=== PATIENT | male | born 1980 | race Caucasian/White ===

== ENCOUNTER 2020-05-26 03:54 | Inpatient (IN) | payer OTHER ==
[2020-05-26] VITALS (350 sets, daily range): BP systolic 123–148; BP diastolic 74–89; PULSE 49–65; TEMP 97.7–98.6; O2SAT 86–100
[~2020-05-26] VITALS: Wt 90.4 kg
--- NOTE | 2020-05-26 04:51 | NUR ---
Patient arrived to the unit via EMS. Patient alert and oriented and in no distress upon arrival. Able to answer all quesions appropriately. Hospitalist notifed and at patient's bedside to discuss current plan of care.
[2020-05-26 05:41] LABS: BASO # 0.1 (0.0-0.2); BASO % 0.5 % (0.0-2.0); EOS # 0.1 (0.0-0.7); EOS % 0.8 % (0-4.0); GRAN # 8.9 (1.4-6.5); GRAN % 79.1 % (42.2-75.2); HEMATOCRIT 40.7 % (42.0-52.0); HEMOGLOBIN 14.5 g/dl (13.5-18.0); LYMPH # 1.5 (1.2-3.4); LYMPH % 13.2 % (20.0-51.0); MEAN CELL VOLUME 91 fl (80.0-100.0); MEAN CORPUSCULAR HEMOGLOBIN 33 pg (27.0-31.0); MEAN CORPUSCULAR HGB CONC 36 g/dl (33.0-37.0); MEAN PLATELET VOLUME 10.5 fl (7.4-10.4); MONO # 0.7 (0.1-0.6); MONO % 6.1 % (1.7-9.3); PLATELET COUNT 231 K/mm3 (130-400); RED BLOOD COUNT 4.46 M/mm3 (4.20-5.60); REDCELL DISTRIBUTION WIDTH-CV 11.8 % (11.5-14.5)
[2020-05-26 05:51] LABS: CALCIUM 9.2 mg/dL (8.4-10.2); CREATININE, serum 1.4 (0.66-1.25); POTASSIUM 3.5 mmol/L (3.4-5.0); SALICYLATE 34.1 mg/dL
[2020-05-26] MEDS ORDERED: IMITREX 25MG TA25 MG (06:44)
[2020-05-26] MEDS ORDERED: ASPIRIN 32325 MG/TAB PO (06:45)
[2020-05-26 08:19] LABS: CALCIUM 8.8 mg/dL (8.4-10.2); CREATININE, serum 1.47 (0.66-1.25); POTASSIUM 3.5 mmol/L (3.4-5.0); SALICYLATE 29.8 mg/dL
[2020-05-26 10:26] LABS: CALCIUM 8.9 mg/dL (8.4-10.2); CREATININE, serum 1.5 (0.66-1.25); POTASSIUM 3.6 mmol/L (3.4-5.0); SALICYLATE 28.4 mg/dL
--- NOTE | 2020-05-26 10:53 | NUR ---
Mushroom Packer met with the patient to complete intake. The patient lives on [address] with his . The patient is [employer], is independent and denies DME use. The patient receives medical care and medications from [facility]. The patient does not have advanced directives in the EMR but states they are complete and designate his . The patient plans to return home discharge and his will provide transporation.
[2020-05-26 12:21] LABS: CALCIUM 8.4 mg/dL (8.4-10.2); CREATININE, serum 1.36 (0.66-1.25); POTASSIUM 3.5 mmol/L (3.4-5.0); SALICYLATE 22.8 mg/dL
--- NOTE | 2020-05-26 14:10 | NUR ---
Patient trasnported upstairs via wheelchair to room 317. IVF still running. STANISLAV Foreman notified patient in room.
--- NOTE | 2020-05-26 14:34 | NUR ---
Pt arrives to medical unit rm 317 from ICU, awake and alert, oriented x 4, ambulates in room with steady gait, reports pain to right side tooth starting to increase. IVF's infusing per orders through left AC without s/s of complications. No further needs reported. Call light in reach.
[2020-05-26 15:42] LABS: CALCIUM 8.4 mg/dL (8.4-10.2); CREATININE, serum 1.44 (0.66-1.25); POTASSIUM 3.4 mmol/L (3.4-5.0)
--- NOTE | 2020-05-26 16:30 | NUR ---
Pt reports pain to right tooth 6 out of 10, requesting pain medication as available. PRN medication administered per orders. No further needs reported. Call light in reach.
--- NOTE | 2020-05-26 19:05 | NUR ---
Report with STANISLAV Willson. Pt resting in bed, reports pain to right tooth remains around 6 out of 10. PRN pain medication administered per orders. Pt denies further needs. Call light in reach.
--- NOTE | 2020-05-26 20:40 | NUR ---
PATIENT RECEIVED FAIR IN BED.DUE MEDS GIVEN,REPORTED OF PAIN MEDS GIVEN ORDERED,ASSESSMENT DONE,IVFS IN GOOD PROGRESS.NO OTHER NEEDS AT THIS TIME.
[2020-05-27 00:30] VITALS: BP 135/77; PULSE 56; TEMP 97.5
[2020-05-27 04:30] VITALS: BP 138/82; PULSE 70; TEMP 98.3
--- NOTE | 2020-05-27 05:18 | NUR ---
PATIENT REMAINS FAIR ON 6 HOURLY PAIN MEDS,IVFS ARE IN GOOD PROCESS,NO OTHER NEEDS ST THIS TIME.
[2020-05-27 07:18] LABS: BASO # 0.1 (0.0-0.2); BASO % 0.7 % (0.0-2.0); EOS # 0.2 (0.0-0.7); EOS % 2.2 % (0-4.0); GRAN # 5.1 (1.4-6.5); GRAN % 60.9 % (42.2-75.2); HEMATOCRIT 41.5 % (42.0-52.0); HEMOGLOBIN 14.4 g/dl (13.5-18.0); LYMPH % 24.4 % (20.0-51.0); MEAN CELL VOLUME 93 fl (80.0-100.0); MEAN CORPUSCULAR HEMOGLOBIN 32 pg (27.0-31.0); MEAN CORPUSCULAR HGB CONC 35 g/dl (33.0-37.0); MEAN PLATELET VOLUME 10.8 fl (7.4-10.4); MONO % 11.4 % (1.7-9.3); PLATELET COUNT 220 K/mm3 (130-400); RED BLOOD COUNT 4.48 M/mm3 (4.20-5.60); REDCELL DISTRIBUTION WIDTH-CV 11.9 % (11.5-14.5)
[2020-05-27 07:23] LABS: CREATININE, serum 1.24 (0.66-1.25); POTASSIUM 3.7 mmol/L (3.4-5.0)
[2020-05-27 07:37] LABS: COLLECTION METHOD CLEAN CATCH
[2020-05-27 08:04] LABS: PH 7 (5-8); SQUAMOUS EPITHELIAL None Seen /hpf; URINE APPEARANCE Clear; URINE BACTERIA None Seen /hpf; URINE BILIRUBIN Negative (NEGATIVE); URINE BLOOD Negative (NEGATIVE); URINE COLOR Straw; URINE GLUCOSE Negative (NEGATIVE); URINE KETONE Negative (NEGATIVE); URINE LEUKOCYTE ESTERASE Negative (NEGATIVE); URINE NITRATE Negative (NEGATIVE); URINE PROTEIN(semi-quant) Negative (NEGATIVE); URINE RBC None Seen /hpf; URINE UROBILINOGEN Negative (NEGATIVE)
[2020-05-27 08:22] VITALS: BP 141/88; PULSE 60; TEMP 98.3
--- NOTE | 2020-05-27 08:46 | NUR ---
Patient sitting up in bed eating breakfast. A&Ox4. VSS. IV CDI, fluids infusing. Reporting pain in jaw 09/04. Pain medication given as requested from the patient. No further needs expressed from the patient. Call light within reach
[2020-05-27 11:52] VITALS: BP 139/75; PULSE 73; TEMP 99.2
[2020-05-27 16:50] VITALS: BP 154/79; PULSE 65; TEMP 99.1
--- NOTE | 2020-05-27 17:33 | NUR ---
Patient had an uneventful day. A&Ox3. VSS. IV CDI. Pain medication given when requested. Patient ambulated in the hallways independently, no complaints. No further needs expressed from the patient. Call light within reach
[2020-05-27 19:38] VITALS: BP 146/71; PULSE 76; TEMP 98.8
[2020-05-28 00:13] VITALS: BP 142/79; PULSE 64; TEMP 98.4
[2020-05-28 04:06] VITALS: BP 152/71; PULSE 85; TEMP 97.9
--- NOTE | 2020-05-28 07:00 | NUR ---
Report with STANISLAV Concepcion. Pt resting in bed with eyes closed, resp even and unlabored. IVF's infusing per orders. Call light in reach.
[2020-05-28 07:09] LABS: BASO # 0.1 (0.0-0.2); BASO % 0.6 % (0.0-2.0); EOS # 0.2 (0.0-0.7); EOS % 2.6 % (0-4.0); GRAN # 4.5 (1.4-6.5); GRAN % 58.2 % (42.2-75.2); HEMATOCRIT 40.8 % (42.0-52.0); HEMOGLOBIN 14.2 g/dl (13.5-18.0); LYMPH % 25.8 % (20.0-51.0); MEAN CELL VOLUME 93 fl (80.0-100.0); MEAN CORPUSCULAR HEMOGLOBIN 32 pg (27.0-31.0); MEAN CORPUSCULAR HGB CONC 35 g/dl (33.0-37.0); MEAN PLATELET VOLUME 10.4 fl (7.4-10.4); MONO % 12.5 % (1.7-9.3); PLATELET COUNT 213 K/mm3 (130-400); RED BLOOD COUNT 4.38 M/mm3 (4.20-5.60); REDCELL DISTRIBUTION WIDTH-CV 11.6 % (11.5-14.5)
[2020-05-28 07:26] LABS: CALCIUM 9.2 mg/dL (8.4-10.2); CREATININE, serum 1.34 (0.66-1.25); POTASSIUM 3.9 mmol/L (3.4-5.0)
[2020-05-28 08:26] VITALS: BP 137/87; PULSE 53; TEMP 98.2
--- NOTE | 2020-05-28 08:36 | NUR ---
Assessment complete. Pt sitting up in bed, A&O x 4, denies pain at this time, reports burst of pressure relief over night. IVF's infusing per orders through left AC site without s/s of complications. Pt expresses interest in discharging home today. No further needs reported. Call light in reach.
[2020-05-28] MEDS ORDERED: NORCO 325 MG-51 TAB PO (08:59)
[2020-05-28] MEDS ORDERED: CLEOCIN HCL300 MG PO (09:02)
--- NOTE | 2020-05-28 09:12 | NUR ---
Initial visit; Clinical Allergist thanked patient for his service in the and offered God's blessings. Patient states he is doing well and is going to be discharged today. He thanked Clinical Allergist for visiting.
--- NOTE | 2020-05-28 11:26 | NUR ---
Discharge instructions reviewed with pt regarding prescriptions, avoiding aspirin, and keeping appointments. Pt verbalizes understanding, discharged home, ambulates out of facility accompanied by this nurse. Pt's providing transport home.
== END 2020-05-28 11:30 | disposition home or self-care (01) | DRG 918 ==
LOC: IMCU 03:54 → ICU 04:40 → MEDICAL 04:40
PROVIDERS: Hospitalist; Nurse Practitioner Family; Physician Assistant; ADMIT Internal Medicine
DX: T39.011A Poisoning by aspirin, accidental (unintentional), initial encounter (principal); N17.9 Acute kidney failure, unspecified; N18.9 Chronic kidney disease, unspecified; D72.829 Elevated white blood cell count, unspecified; R68.84 Jaw pain; K02.9 Dental caries, unspecified; F17.210 Nicotine dependence, cigarettes, uncomplicated; Z88.0 Allergy status to penicillin
CPT/HCPCS: 99222-AI; 99231-AI; 99239; C9113; J1170; J3480; J7030; J7070